=== PATIENT | male | born 1940 | race Two or more races ===

== ENCOUNTER 2024-08-16 13:58 | Inpatient (IN) | payer MEDICARE, OTHER ==
[~2024-08-16] VITALS: Ht 165.1 cm; Wt 103.9 kg
[2024-08-16 14:28] LABS: BASOPHILS % (AUTO) 0.6 % (0.0-2.0); EOSINOPHILS # (AUTO) 0.1 K/uL (0.0-0.7); EOSINOPHILS % (AUTO) 2.4 % (0.0-6.0); HEMATOCRIT 35 % (39-51); HEMOGLOBIN 11.6 g/dL (13.5-17.5); LYMPHOCYTES % (AUTO) 17.8 % (20.0-44.0); MEAN CORPUSCULAR HEMOGLOBIN 26 PG (26.0-33.0); MEAN CORPUSCULAR HGB CONC 33 g/dl (31.0-36.0); MEAN CORPUSCULAR VOLUME 79 fL (80-96); MONOCYTES # (AUTO) 0.4 K/uL (0.1-1.30); MONOCYTES % (AUTO) 6.7 % (2.0-12.0); NEUTROPHILS # (AUTO) 4.1 K/uL (1.8-8.9); NEUTROPHILS % (AUTO) 72.5 % (43.0-81.0); PLATELET COUNT (AUTO) 196 K/uL (150-450); RED BLOOD CELL COUNT(AUTO) 4.45 MIL/uL (4.5-6.0); RED CELL DISTRIBUTION WIDTH 15.7 % (11.5-15.0); WHITE BLOOD COUNT (AUTO) 5.7 K/uL (4.3-11.0)
[2024-08-16 14:38] LABS: CALCIUM, SERUM 8.7 mg/dL (8.5-10.1); CARBON DIOXIDE 32 mmol/L (21-32); CHLORIDE 103 mmol/L (98-107); CREATININE 1.5 mg/dL (0.6-1.3); GLUCOSE 124 mg/dL (74-106); POTASSIUM 4.2 mmol/L (3.5-5.1); SODIUM SERUM 141 mmol/L (136-145); UREA NITROGEN, BLOOD 23 mg/dL (7-18)
[2024-08-16] MEDS ORDERED: DOXA8TAB79 PO (14:52)
[2024-08-16] MEDS ORDERED: AMLO10TA4 PO (14:52)
[2024-08-16] MEDS ORDERED: EMPA10TA PO (14:52)
[2024-08-16] MEDS ORDERED: HYDR-4076 PO (14:52)
[2024-08-16] MEDS ORDERED: MECL-182 PO (14:52)
[2024-08-16] MEDS ORDERED: PRAV40TA3 PO (14:52)
[2024-08-16] MEDS ORDERED: ASPI-1169 PO (14:52)
[2024-08-16] MEDS ORDERED: ONDA4TAB5 PO (14:52)
[2024-08-16] MEDS ORDERED: SPIR25TA6 PO (14:52)
[2024-08-16] MEDS ORDERED: GLIP10TA11 PO (14:52)
[2024-08-16] MEDS ORDERED: OLME40TA12 PO (14:52)
[2024-08-16] MEDS ORDERED: CARV6.25 PO (14:52)
[2024-08-16 18:23] VITALS: BP 159/76; TEMP 98.1; O2SAT 94
[2024-08-16 20:00] VITALS: BP 107/60; TEMP 98.1; O2SAT 93; O2SAT 98
[2024-08-16] MEDS ORDERED: ZOLPIDEM TARTRATE 5 MG TABLET PO PRN (21:00)
[2024-08-16] MEDS ORDERED: ONDANSETRON HCL/PF 4 MG/2 ML VIAL IV PRN (21:00)
[2024-08-16] MEDS ORDERED: CLONIDINE HCL 0.1 MG TABLET PO PRN (21:00)
[2024-08-16] MEDS: BLOOD SUGAR DIAGNOSTIC 1 EACH STRIP VI SCH (22:16)
[2024-08-16] MEDS: *INSULIN REGULAR(HUMULIN R)HUM 100 UNIT/ML VIAL SQ PRN (22:16)
[2024-08-16] MEDS ORDERED: MECLIZINE HCL 12.5 MG TABLET PO PRN (23:00)
[2024-08-17] VITALS (9 sets, daily range): BP systolic 117–151; BP diastolic 56–81; TEMP 97.5–98.2; O2SAT 94–96
[2024-08-17 06:48] LABS: BASOPHILS % (AUTO) 0.5 % (0.0-2.0); EOSINOPHILS # (AUTO) 0.2 K/uL (0.0-0.7); EOSINOPHILS % (AUTO) 4.7 % (0.0-6.0); HEMATOCRIT 34 % (39-51); LYMPHOCYTES # (AUTO) 1.1 K/uL (0.8-4.8); LYMPHOCYTES % (AUTO) 21.7 % (20.0-44.0); MEAN CORPUSCULAR HEMOGLOBIN 26 PG (26.0-33.0); MEAN CORPUSCULAR HGB CONC 33 g/dl (31.0-36.0); MEAN CORPUSCULAR VOLUME 79 fL (80-96); MONOCYTES # (AUTO) 0.4 K/uL (0.1-1.30); MONOCYTES % (AUTO) 7.8 % (2.0-12.0); NEUTROPHILS # (AUTO) 3.2 K/uL (1.8-8.9); NEUTROPHILS % (AUTO) 65.3 % (43.0-81.0); PLATELET COUNT (AUTO) 192 K/uL (150-450); RED BLOOD CELL COUNT(AUTO) 4.25 MIL/uL (4.5-6.0); RED CELL DISTRIBUTION WIDTH 15.6 % (11.5-15.0); WHITE BLOOD COUNT (AUTO) 4.9 K/uL (4.3-11.0)
[2024-08-17 07:04] LABS: CALCIUM, SERUM 8.8 mg/dL (8.5-10.1); CREATININE 1.4 mg/dL (0.6-1.3); POTASSIUM 3.9 mmol/L (3.5-5.1)
[2024-08-17] MEDS: glipiZIDE 10 MG TABLET PO SCH (07:57)
[2024-08-17] MEDS: ACETAMINOPHEN 325 MG TABLET PO PRN (07:57)
[2024-08-17] MEDS: ASPIRIN 81 MG TAB.CHEW PO SCH (08:16)
[2024-08-17] MEDS: CARVEDILOL 6.25 MG TABLET PO SCH ×3 (08:16→16:39)
[2024-08-17] MEDS: AMLODIPINE BESYLATE 10 MG TABLET PO SCH (08:16)
[2024-08-17] MEDS ORDERED: JARDIANCE 10 MG PO SCH (09:00)
[2024-08-17 09:25] LABS: IRON, SERUM 33 ug/dl (50-175); TOTAL IRON BINDING CAPACITY 347 ug/dl (250-450)
[2024-08-17 09:39] LABS: CHOLESTEROL 106 mg/dL (<200); FERRITIN 23 ng/mL (8-388); HDL CHOLESTEROL 43 mg/dL (40-60); LDL 54 mg/dL (0-99); TRIGLYCERIDES 90 mg/dL (30-150)
[2024-08-17] MEDS: IV NS 0.9% 1,000 ML IV PRN (09:57)
[2024-08-17] MEDS: INSULIN REGULAR, HUMAN 100 UNIT/ML 3 ML VIAL SQ PRN (11:38)
[2024-08-17] MEDS: ATORVASTATIN 10 MG TABLET PO SCH (21:53)
[2024-08-17] MEDS: DEXTROSE 50%-WATER 50 ML DISP.SYRIN IV PRN (22:02)
[2024-08-18] VITALS: BP 133/53; TEMP 98.4; O2SAT 96
[2024-08-18 04:00] VITALS: BP 143/83; TEMP 98.2; O2SAT 92
[2024-08-18 06:18] LABS: BASOPHILS % (AUTO) 0.6 % (0.0-2.0); EOSINOPHILS # (AUTO) 0.2 K/uL (0.0-0.7); EOSINOPHILS % (AUTO) 3.4 % (0.0-6.0); HEMATOCRIT 37 % (39-51); HEMOGLOBIN 12.1 g/dL (13.5-17.5); LYMPHOCYTES # (AUTO) 1.2 K/uL (0.8-4.8); LYMPHOCYTES % (AUTO) 19.9 % (20.0-44.0); MEAN CORPUSCULAR HEMOGLOBIN 26 PG (26.0-33.0); MEAN CORPUSCULAR HGB CONC 33 g/dl (31.0-36.0); MEAN CORPUSCULAR VOLUME 79 fL (80-96); MONOCYTES # (AUTO) 0.4 K/uL (0.1-1.30); MONOCYTES % (AUTO) 7.3 % (2.0-12.0); NEUTROPHILS % (AUTO) 68.8 % (43.0-81.0); PLATELET COUNT (AUTO) 206 K/uL (150-450); RED BLOOD CELL COUNT(AUTO) 4.67 MIL/uL (4.5-6.0); RED CELL DISTRIBUTION WIDTH 15.7 % (11.5-15.0); WHITE BLOOD COUNT (AUTO) 5.8 K/uL (4.3-11.0)
[2024-08-18 07:01] LABS: ALBUMIN 3.5 g/dL (3.4-5.0); BILIRUBIN,TOTAL 0.6 mg/dL (0.2-1.0); CALCIUM, SERUM 9.1 mg/dL (8.5-10.1); CREATININE 1.2 mg/dL (0.6-1.3); MAGNESIUM 2.1 mg/dL (1.8-2.4); PHOSPHORUS 3.9 mg/dL (2.5-4.9); POTASSIUM 4.1 mmol/L (3.5-5.1); TOTAL PROTEIN, SERUM 7.1 g/dL (6.4-8.2)
[2024-08-18 08:00] VITALS: BP 134/87; TEMP 97.5; O2SAT 93
[2024-08-18] MEDS: HEPARIN SODIUM, PORCINE 5000 UNITS/1 ML VIAL SQ SCH (09:17)
[2024-08-18 09:18] VITALS: BP 134/87
== END 2024-08-18 13:05 | disposition home or self-care (01) | DRG 313 ==
LOC: ER 14:05 → TELE 17:10
PROVIDERS: ADMIT Internal Medicine; ATTEND Internal Medicine
DX: R07.9 Chest pain, unspecified (principal); N17.9 Acute kidney failure, unspecified; J98.11 Atelectasis; I42.2 Other hypertrophic cardiomyopathy; J90 Pleural effusion, not elsewhere classified; E78.5 Hyperlipidemia, unspecified; E66.01 Morbid (severe) obesity due to excess calories; I25.119 Atherosclerotic heart disease of native coronary artery with unspecified angina pectoris; N18.31 Chronic kidney disease, stage 3a; Z87.891 Personal history of nicotine dependence; Z95.5 Presence of coronary angioplasty implant and graft; D64.9 Anemia, unspecified; Z68.38 Body mass index [BMI] 38.0-38.9, adult; D50.9 Iron deficiency anemia, unspecified; E11.22 Type 2 diabetes mellitus with diabetic chronic kidney disease; F10.21 Alcohol dependence, in remission; J44.9 Chronic obstructive pulmonary disease, unspecified; Z79.84 Long term (current) use of oral hypoglycemic drugs; I12.9 Hypertensive chronic kidney disease with stage 1 through stage 4 chronic kidney disease, or unspecified chronic kidney disease
CPT/HCPCS: 36415; 71045-TC; 75574; 80048-TC; 80053-TC; 80061-TC; 82728-TC; 82962-TC; 83540-TC; 83735-TC; 84100-TC; 84439-TC; 84443-TC; 84484-TC; 85025-TC; 93307-TC; A4223; G0378; J1644; J1815; J7030; J8597